=== PATIENT | male | born 1990 | race Two or more races ===

== ENCOUNTER 2018-11-13 09:50 | Emergency (ER) | payer SELFPAY ==
[~2018-11-13] VITALS: Ht 182.9 cm; Wt 113.4 kg
[2018-11-13 09:55] VITALS: BP 179/108
[2018-11-13] MEDS ORDERED: HYDROcodone/APAP 5/325MG 1 TAB TABLET PO ONE (10:15)
--- NOTE | 2018-11-13 10:37 | RAD ---
Study: FOOT RIGHT 3V Indication: Trauma. Swelling at the proximal fourth and fifth metatarsals. Comparison: None. Findings: Acute, transversely oriented fracture at the base of the fifth metatarsal which on the oblique view extends into the region of the tarsometatarsal and intermetatarsal joint space. Mild diastases of the fracture cleft as best appreciated on the lateral view measuring up to 4 mm. Os peroneum incidentally noted in this region. No additional fracture is identified. Soft tissue prominence at the anterior aspect of the ankle joint could represent a small effusion and/or synovitis and is likely a chronic finding. No fracture seen in this region. Impression: 1. Mildly diastatic, horizontally oriented fracture at the base of the fifth metatarsal propagating towards/into the adjacent TMT and intermetatarsal joints. 2. Soft tissue fullness at the anterior aspect of ankle joint which could represent an effusion and/or synovitis. This is presumably a chronic finding and could be related to degenerative changes. No acute fracture seen in this region. Electronically signed by: EVANGELINA VÁZQUEZ MD (11/13/2018 10:34 AM) [facility]
[2018-11-13] MEDS ORDERED: HYDR-3164 PO (11:20)
[2018-11-13] MEDS ORDERED: NAPR-683 PO (11:20)
--- NOTE | 2018-11-13 11:21 | PHYS DOC ---
Past Medical History Past Medical History: No Pertinent History Past Surgical History: No Surgical History Alcohol Use: Occasionally Drug Use: None Adult General Chief Complaint Chief Complaint: FOOT INJURY PAIN HPI HPI Patient is a 28 year old male who presents with complaining of injury to right foot. Patient stated a tree branch fell on his right foot pain and edema and painful walking. Patient denies other injuries and focal neurodeficit. Patient rated his pain 10 over 10. Review of Systems Review of Systems Constitutional: Denies fever or chills [] Eyes: Denies change in visual acuity, redness, or eye pain [] HENT: Denies nasal congestion or sore throat [] Respiratory: Denies cough or shortness of breath [] Cardiovascular: No additional information not addressed in HPI [] GI: Denies abdominal pain, nausea, vomiting, bloody stools or diarrhea [] : Denies dysuria or hematuria [] Musculoskeletal: Denies back pain, reports joint pain [] Integument: Denies rash or skin lesions [] Neurologic: Denies headache, focal weakness or sensory changes [] Endocrine: Denies polyuria or polydipsia [] All other systems were reviewed and found to be within normal limits, except as documented in this note. Current Medications Current Medications Current Medications Medications (Trade) Dose Ordered Sig/Michelle Start Time Stop Time Status Last Admin Dose Admin Acetaminophen/ Hydrocodone Bitart (Lortab 5/325) 1 tab 1X ONCE 11/13/18 10:15 11/13/18 10:16 DC 11/13/18 10:10 1 TAB Allergies Allergies Allergies Coded Allergies Type Severity Reaction Last Updated Verified No Known Drug Allergies 11/13/18 No Physical Exam Physical Exam Constitutional: Well developed, well nourished, mild distress, non-toxic appearance. [] HENT: Normocephalic, atraumatic. Eyes: PERRLA, EOMI, conjunctiva normal, no discharge. [] Neck: Normal range of motion, no tenderness, supple, no stridor. [] Cardiovascular:Heart rate regular rhythm, no murmur [] Lungs & Thorax: Bilateral breath sounds clear to auscultation [] Skin: Warm, dry, no erythema, no rash. [] Back: No tenderness, no CVA tenderness. [] Extremities: Right knee with effusion over patella without tenderness, or deformity, normal range of motion, right foot with large area of edema and tenderness in proximal of fifth metatarsal with tenderness and painful range of motion without neurovascular deficit. Neurologic: Alert and oriented X 3, no focal deficits noted. [] Psychologic: Affect normal, judgement normal, mood normal. [] Current Patient Data Vital Signs Vital Signs Date Time Temp Pulse Resp B/P (MAP) Pulse Ox O2 Delivery O2 Flow Rate FiO2 11/13/18 10:10 16 95 Room Air 11/13/18 09:55 98.9 82 179/108 (131) 98.9 EKG EKG [] Radiology/Procedures Radiology/Procedures [facility] [address] [place] [address] IMAGING REPORT Signed PATIENT: CLARISSA CHAPARRO AACCOUNT: [id number] : 1990 LOCATION: ER AGE: 28 SEX: M EXAM STATUS: PRE ER ORD. PHYSICIAN: CRISTIAN BEAULIEU MD REASON: injury, dropped concrete on foot, swellinng proximal 4th and 5th metatarsal PROCEDURE: FOOT RIGHT 3V Study: FOOT RIGHT 3V Indication: Trauma. Swelling at the proximal fourth and fifth metatarsals. Comparison: None. Findings: Acute, transversely oriented fracture at the base of the fifth metatarsal which on the oblique view extends into the region of the tarsometatarsal and intermetatarsal joint space. Mild diastases of the fracture cleft as best appreciated on the lateral view measuring up to 4 mm. Os peroneum incidentally noted in this region. No additional fracture is identified. Soft tissue prominence at the anterior aspect of the ankle joint could represent a small effusion and/or synovitis and is likely a chronic finding. No fracture seen in this region. Impression: 1. Mildly diastatic, horizontally oriented fracture at the base of the fifth metatarsal propagating towards/into the adjacent TMT and intermetatarsal joints. 2. Soft tissue fullness at the anterior aspect of ankle joint which could represent an effusion and/or synovitis. This is presumably a chronic finding and could be related to degenerative changes. No acute fracture seen in this region. Electronically signed by: EVANGELINA VÁZQUEZ MD (11/13/2018 10:34 AM) [facility] DICTATED and SIGNED BY: EVANGELINA VÁZQUEZ MD DATE: 11/13/18 1033 [facility] [address] [place] [address] IMAGING REPORT Signed PATIENT: CLARISSA CHAPARRO AACCOUNT: [id number] : 1990 LOCATION: ER AGE: 28 SEX: M EXAM STATUS: REG ER ORD. PHYSICIAN: CRISTIAN BEAULIEU MD REASON: injury,swelling anterior knee PROCEDURE: KNEE RIGHT 4V Examination: KNEE RIGHT 4V History: Swelling at the anterior aspect of the knee. Injury. Comparison/Correlation: None Findings: Total of 5 images of the right knee were obtained including patellar sunrise views. Joint spaces are unremarkable. No acute fracture or bony destruction. Prepatellar soft tissue prominence is notable. No significant degenerative change. Small knee joint effusion is suspected. Impression: Prepatellar soft tissue prominence likely representing prepatellar bursitis.. Small knee joint effusion. Electronically signed by: Malcolm Degroot MD (11/13/2018 11:54 AM) [facility] DICTATED and SIGNED BY: MALCOLM DEGROOT MD DATE: 11/13/18 5888 Course & Med Decision Making Course & Med Decision Making Pertinent Imaging studies reviewed. (See chart for details) Evaluation of patient in ER showed 28-year-old male patient with injury to right foot. Patient had fifth metatarsal fracture and right knee bursitis. Jeremy wrap was applied in right knee and OCL splint was applied for right foot fracture. Crutches was provided and patient was advised to follow-up with orthopedic physician. Jeffry Disclaimer Dragon Disclaimer This electronic medical record was generated, in whole or in part, using a voice recognition dictation system. Departure Departure Impression: Primary Impression: Fracture of fifth metatarsal bone of right foot Additional Impression: Prepatellar bursitis, right knee Disposition: HOME, SELF-CARE (at 1125) Condition: IMPROVED Referrals: NO PCP (PCP) ROSALINA FERNANDEZ MD Patient Instructions: Knee Effusion, Metatarsal Fracture, Undisplaced Additional Instructions: Apply ice on right foot and right knee Follow-up with your primary care physician in 3-5 days Return to ER if not getting better Follow-up with senior formulation scientist orthopedic physician in 2 or 3 days Use provided crutches all the time Scripts Hydrocodone/Apap 5-325 (NORCO 5-325 TABLET) 1 Each Tablet 1 TAB PO PRN Q6HRS PRN for PAIN, #15 TAB 0 Refills Prov: CRISTIAN BEAULIEU MD 11/13/18 Naproxen (NAPROSYN) 500 Mg Tablet 1 TAB PO BID for pain, #20 TAB Prov: CRISTIAN BEAULIEU MD 11/13/18 Problem Qualifiers Primary Impression: Fracture of fifth metatarsal bone of right foot Encounter type: initial encounter Fracture type: closed Fracture alignment: nondisplaced Qualified Codes: S92.354A - Nondisplaced fracture of fifth metatarsal bone, right foot, initial encounter for closed fracture CRISTIAN BEAULIEU MD Nov 13, 2018 11:21
--- NOTE | 2018-11-13 11:58 | RAD ---
Examination: KNEE RIGHT 4V History: Swelling at the anterior aspect of the knee. Injury. Comparison/Correlation: None Findings: Total of 5 images of the right knee were obtained including patellar sunrise views. Joint spaces are unremarkable. No acute fracture or bony destruction. Prepatellar soft tissue prominence is notable. No significant degenerative change. Small knee joint effusion is suspected. Impression: Prepatellar soft tissue prominence likely representing prepatellar bursitis.. Small knee joint effusion. Electronically signed by: Malcolm Crisostomo MD (11/13/2018 11:54 AM) [facility]
== END 2018-11-13 13:00 | disposition home or self-care (01) ==
LOC: EDBD 09:50 → ER 09:50
DX: S92.354A Nondisplaced fracture of fifth metatarsal bone, right foot, initial encounter for closed fracture (principal); M70.41 Prepatellar bursitis, right knee; W20.8XXA Other cause of strike by thrown, projected or falling object, initial encounter; Y93.89 Activity, other specified; Y92.89 Other specified places as the place of occurrence of the external cause; Y99.8 Other external cause status
CPT/HCPCS: 29505; 73564; 73630; 99284